=== PATIENT | female | born 1945 | race Hispanic/Latino ===

== ENCOUNTER 2016-12-24 07:54 | Outpatient (CLI) | payer MEDICARE ==
[2016-12-24 08:37] LABS: Albumin 3.9 g/dL (3.9-5); BUN/Creatinine Ratio 16.66; Calcium 9.4 mg/dL (8.4-10.2); Chloride 101.6 mmol/L (98-107); Phosphorous 3.9 mg/dL (2.5-4.5); Potassium 4.6 mmol/L (3.6-5.0)
--- NOTE | 2016-12-24 09:30 | Ultrasound Report ---
ULTRASOUND RENAL INDICATION: Chronic kidney disease, stage III. COMPARISON: None similar at this institution. FINDINGS: Renal sonography may indicate top normal renal cortical echogenicity, not as evident on the right due to echogenic coarsening of imaged adjacent liver. Grossly preserved renal contours. No hydronephrosis. RIGHT KIDNEY measures 8.6 x 4.4 x 4.5 cm with cortical thickness of 1.8 cm. LEFT KIDNEY estimated at 9.6 x 4.9 x 5.4 cm with cortical thickness of 1.5 cm. URINARY BLADDER suboptimally distended and assessed, though grossly unremarkable in so far seen. CONCLUSION: No acute renal sonographic abnormality with possible fatty liver, as described. Thank you for the opportunity to participate in this patient's care.
== END 2016-12-24 07:55 | disposition home or self-care (01) ==
LOC: US 07:54
PROVIDERS: ATTEND Internal Medicine Nephrology
DX: N18.3 Chronic kidney disease, stage 3 (moderate) (principal); I12.9 Hypertensive chronic kidney disease with stage 1 through stage 4 chronic kidney disease, or unspecified chronic kidney disease; E11.22 Type 2 diabetes mellitus with diabetic chronic kidney disease; N25.81 Secondary hyperparathyroidism of renal origin; E87.5 Hyperkalemia; R60.0 Localized edema; N32.89 Other specified disorders of bladder
CPT/HCPCS: 36415; 76770; 80048; 82040; 82043; 84100